=== PATIENT | female | born 1990 | race Caucasian/White ===

== ENCOUNTER 2025-08-13 14:29 | Outpatient (CLI) | payer OTHER, SELFPAY | END 2025-08-13 14:30 | disposition home or self-care (01) | LOC: NFLDREF 08-19 20:10 | PROVIDERS: Visit Provider Nurse Practitioner Family | DX: N89.8 Other specified noninflammatory disorders of vagina (principal); B37.9 Candidiasis, unspecified | CPT/HCPCS: 87086 ==